=== PATIENT | female | born 1995 | race Caucasian/White ===

== ENCOUNTER 2017-12-16 20:31 | Emergency (ER) | payer BC ==
[~2017-12-16] VITALS: Ht 172.7 cm; Wt 65.8 kg
--- NOTE | 2017-12-16 20:31 | NUR ---
PT BIBA TO ER WAITING ROOM.
[2017-12-16 20:42] VITALS: BP 133/84
--- NOTE | 2017-12-16 22:20 | NUR ---
PT AMBULATORY TO BED 4 W/ STEADY GAIT.
--- NOTE | 2017-12-16 22:25 | NUR ---
PATIENT IS A 22 Y/O FEMALE WHO PRESENTS TO THE ED C/O ANXIETY. PT STATES THAT SHE WAS AT WORK FEW HOURS WHEN PATIENT FELT HEAVY AND REPORTS LOSS OF MEMORY. PT REPORTS 6/10 HEADACHE PAIN THAT DOES NOT RADIATE. PT DENIES CP, SOB, N/V/D. PT AAOX4, RR EVEN/UNLABORED, AMBULATED WITH STEADY GAIT. PT REPOSITIONED FOR COMFORT, EVEN/UNLABORED. PT REPOSITIONED FOR COMFORT, BED IN LOWEST POSITION. ER MD DR. MONTGOMERY NOTIFIED. WILL CONTINUE TO MONITOR.
[2017-12-16 23:45] VITALS: BP 118/82
== END 2017-12-16 23:45 | disposition home or self-care (01) ==
LOC: MED 20:31
DX: F41.9 Anxiety disorder, unspecified (principal)
CPT/HCPCS: 99284